=== PATIENT | female | born 1965 | race Caucasian/White ===

== ENCOUNTER 2018-05-15 10:54 | Emergency (ER) | payer BC, OTHER ==
[~2018-05-15] VITALS: Ht 170.2 cm; Wt 104.3 kg
[~2018-05-15 10:54] MED LIST: DYAZIDE 37.5-21 EACH; IBUPROFEN 600600 M1 PO; TOPROL XL25 MG
[2018-05-15] MEDS ORDERED: KLOR-CON 1010 MEQ PO (11:22)
[2018-05-15] MEDS ORDERED: LOSARTAN POTASS50 MG PO (11:22)
[2018-05-15] MEDS ORDERED: LASIX 20 MG TAB20 MG PO (11:23)
[2018-05-15 11:49] VITALS: BP 167/95
== END 2018-05-15 11:51 | disposition home or self-care (01) ==
LOC: ER 10:54
DX: S90.422A Blister (nonthermal), left great toe, initial encounter (principal); I10 Essential (primary) hypertension; J45.909 Unspecified asthma, uncomplicated; X58.XXXA Exposure to other specified factors, initial encounter; Y93.89 Activity, other specified; Y92.89 Other specified places as the place of occurrence of the external cause; Y99.8 Other external cause status

== ENCOUNTER 2021-02-08 15:38 | Emergency (ER) | payer BC, OTHER ==
[~2021-02-08] VITALS: Ht 170.2 cm; Wt 99.3 kg
--- NOTE | ~2021-02-08 | EMS ---
[place] [address] EMS Patient Care Report Name: NIRANJAN SARKAR Room #: REG [facility]..#: [id number] Admission: 02/08/21 Attend Phys: Discharge: Date of : 61 Report #: [id number] THIS REPORT FOR: //name// Report Transmitted: 02/08/2021 15:15 EMS Care Summary [place], [place]/[facility] Incident [id number] @ 02/08/2021 15:09 Incident Location [address] [place] [address] Patient NIRANJAN SARKAR Female, 55 Years 1965 Patient Address [address] [place] [address] [place] [address] Patient History Hypertension (HTN),Edema, Patient Allergies No known allergies, Chief Complaint head pain/fall Disposition Transported No Lights/[place] Dispatch Reason Falls Transported To [facility] Narrative pt was sitting something up on a counter and lost her balance and fell backwards. pt hit her head on a cement floor. fall was witnessed. no LOC. pt c/o pain to head where she has a hematoma, no lac. pt denies neck or back pain to palp. she agrees to eval at closest ER. ice pack to hd, VS. pt BP is elevated. pt informs us she has not taken her HTN med yet today. transport w/[place] [address] EMS Patient Care Report Name: NIRANJAN SARKAR Room #: REG [facility]#: [id number] Admission: 02/08/21 Attend Phys: Discharge: Date of : 61 Report #: [id number] Initial Vitals @15:25P: 70,R: 18,BP: 205/130,Pain: 6/10,GCS: 15,SpO2: 97,Revised Trauma: 12, Assessments @15:18MENTAL:Time Oriented,Event Oriented,Place Oriented,Person Oriented,SKIN:No Abnormalities,HEENT:Head/Face: Other,LUNG SOUNDS:ABDOMEN:PELVIS//GI:EXTREMITIES:PULSE:Radial: 2+ Normal,NEURO:No Abnormalities, Impression Injury of Head Procedures @15:18 ALS Assessment Response: Unchanged @15:20 Stretcher Response: Unchanged @15:24 Ice Pack Response: Unchanged Timeline 15:07,Call Received 15:07,Dispatch Notified 15:09,Dispatched 15:10,En Route 15:16,On Scene 15:18,At Patient 15:18,ALS Assessment,Response: Unchanged 15:20,Stretcher,Response: Unchanged 15:24,Ice Pack,Response: Unchanged 15:25,BP: 205/130 M,PULSE: 70,RR: 18 R,SPO2: 97 Ox,ETCO2: ,BG: ,PAIN: 6,GCS: 15, 15:26,Depart Scene 15:32,At Destination 15:48,Call Closed Disclaimer v1.1 Copyright 2020 [employer] This EMS Care Summary contains data elements from the applicable legal record (which may be displayed differently). It is designed to provide pertinent information for the following purposes: continuity of care, clinical quality, and state data reporting. The complete legal record is available to ED staff and administrators of the receiving hospital in [facility]'s Patient Tracker. All data is provided "as is."
[~2021-02-08 15:38] MED LIST changes: +KLOR-CON 1010 MEQ PO; +LASIX 20 MG TAB20 MG PO; +LOSARTAN POTASS50 MG PO
[2021-02-08 17:59] VITALS: BP 181/90
== END 2021-02-08 18:03 | disposition home or self-care (01) ==
LOC: ER 15:38
DX: S40.021A Contusion of right upper arm, initial encounter (principal); S09.90XA Unspecified injury of head, initial encounter; S50.311A Abrasion of right elbow, initial encounter; H61.23 Impacted cerumen, bilateral; R60.0 Localized edema; J45.909 Unspecified asthma, uncomplicated; I10 Essential (primary) hypertension; Z79.891 Long term (current) use of opiate analgesic; Z79.899 Other long term (current) drug therapy; W01.0XXA Fall on same level from slipping, tripping and stumbling without subsequent striking against object, initial encounter; Y93.89 Activity, other specified; Y92.89 Other specified places as the place of occurrence of the external cause; Y99.8 Other external cause status